=== PATIENT | female | born 1960 | race Caucasian/White ===

== ENCOUNTER 2018-09-08 21:48 | Emergency (ER) | payer BC, OTHER ==
[~2018-09-08] VITALS: Ht 162.6 cm; Wt 75.3 kg
[2018-09-08 23:39] LABS: URINE HCG NEGATIVE (NEG)
[2018-09-08 23:45] LABS: CLARITY,URINE SLIGHTLY CLOUDY (Clear); COLOR,URINE YELLOW (Yellow); GLUCOSE, URINE NEGATIVE (Neg); KETONES,URINE NEGATIVE (Neg); LEUKOCYTE ESTERASE ,URINE NEGATIVE (Neg); NITRITES, URINE NEGATIVE (Neg); OCCULT BLOOD,URINE NEGATIVE (Neg); PH,URINE 5.5 (4.8-8.0); PROTEIN,URINE NEGATIVE (Neg); UROBILINOGEN,URINE 0.2 E.U/dL (0.2-1.0)
[2018-09-09 00:06] LABS: UA COLLECTION TYPE VOIDED
[2018-09-09 00:30] LABS: BACTERIA,URINE FEW /HPF (Neg); MUCUS STRANDS MODERATE /LPF (Neg); RBC,URINE 0-2 /HPF (0-2); SQUAMOUS EPITHELIAL CELL,UR MODERATE /LPF (FEW)
[2018-09-09] MEDS ORDERED: cephalexin 250mg capsule PO ONE (01:50)
[2018-09-09] MEDS ORDERED: HYDROcodone/acetaminophen 5mg/325mg tablet PO ONE (01:50)
[2018-09-09] MEDS ORDERED: DICL100G15 TOP (02:42)
[2018-09-09] MEDS ORDERED: CEPH500C5 PO (02:42)
[2018-09-09 02:47] VITALS: BP 148/89
== END 2018-09-09 02:56 | disposition home or self-care (01) ==
LOC: ER 21:49
DX: R10.9 Unspecified abdominal pain (principal); M54.5 Low back pain; Z88.2 Allergy status to sulfonamides; Z79.899 Other long term (current) drug therapy
CPT/HCPCS: 74176; 81001; 81003; 81025; 87088; 99284

== ENCOUNTER 2020-11-27 02:22 | Emergency (ER) | payer BC, OTHER ==
[~2020-11-27] VITALS: Ht 162.6 cm; Wt 73.6 kg
[~2020-11-27 02:22] MED LIST: DICL100G15 TOP
[2020-11-27 02:39] VITALS: BP 130/78
[2020-11-27] MEDS ORDERED: ketorolac trometh. 30mg/ml inj. IV ONE ×2 (02:55→03:25)
[2020-11-27] MEDS ORDERED: acetaminophen 325mg tablet PO ONE (02:55)
[2020-11-27] MEDS ORDERED: normal saline 1000ml 1,000 ML IV ONE (03:00)
[2020-11-27] MEDS ORDERED: ondansetron/PF 4mg/2ml inj IV ONE (03:00)
[2020-11-27 03:37] LABS: CLARITY,URINE CLEAR (Clear); COLOR,URINE YELLOW (Yellow); GLUCOSE, URINE NEGATIVE (Neg); KETONES,URINE NEGATIVE (Neg); LEUKOCYTE ESTERASE ,URINE SMALL (Neg); NITRITES, URINE NEGATIVE (Neg); OCCULT BLOOD,URINE NEGATIVE (Neg); PROTEIN,URINE NEGATIVE (Neg); UROBILINOGEN,URINE 0.2 E.U/dL (0.2-1.0)
[2020-11-27 03:42] LABS: BASOPHILS % (AUTO) 0.3 % (0-1); EOSINOPHILS % (AUTO) 0.6 % (0-6); HEMATOCRIT 36.7 % (35.0-45.0); HEMOGLOBIN 12.5 g/dl (12.0-16.0); LYMPHOCYTES # (AUTO) 1.7 X10'3 (1.1-4.8); LYMPHOCYTES % (AUTO) 33.4 % (21-51); MEAN CORPUSCULAR HEMOGLOBIN 31.9 PG (27.0-31.0); MEAN CORPUSCULAR HGB CONC 34.1 g/dL (33.0-36.5); MEAN CORPUSCULAR VOLUME 93.3 FL (78-98); MEAN PLATELET VOLUME 7.5 FL (7.4-10.4); MONOCYTES # (AUTO) 0.4 X10'3 (0-0.9); MONOCYTES % (AUTO) 7.8 % (2-12); NEUTROPHILS % (AUTO) 57.9 % (42-75); PLATELET COUNT 161 X10'3 (140-440); RED BLOOD COUNT 3.94 X10'6 (4.20-5.60); RED CELL DISTRIBUTION WIDTH 13.5 % (11.5-14.5); WHITE BLOOD COUNT 5.1 X10'3 (4.5-11.0)
[2020-11-27 03:43] LABS: UA COLLECTION TYPE CLN CATCH MIDSTREAM
[2020-11-27 03:44] LABS: BACTERIA,URINE NONE SEEN /HPF (Neg); RBC,URINE NONE SEEN /HPF (0-2); SQUAMOUS EPITHELIAL CELL,UR FEW /LPF (FEW); WBC,URINE 0-4 /HPF (0-4)
[2020-11-27 04:01] LABS: ALANINE AMINOTRANSFERASE 35 U/L (12-78); ALBUMIN 3.7 G/DL (3.4-5.0); ALBUMIN/GLOBULIN RATIO 1.1 (1.1-1.5); ALKALINE PHOSPHATASE 94 IU/L (46-116); ANION GAP 10 (8-16); ASPARTATE AMINO TRANSFERASE 27 U/L (10-37); BILIRUBIN,TOTAL 0.4 MG/DL (0.1-1.0); BLOOD UREA NITROGEN 8 MG/DL (7-18); BUN/CREATININE RATIO 9.5 (6.6-38.0); CHLORIDE 102 MMOL/L (99-107); CREATININE 0.84 MG/DL (0.40-0.90); GLUCOSE 111 MG/DL (70-104); LIPASE 58 U/L (73-393); SODIUM 137 MMOL/L (135-145); TOTAL CARBON DIOXIDE 25.4 MMOL/L (24-32); TOTAL PROTEIN 7.1 G/DL (6.4-8.2); eGFR 70 ML/MIN
[2020-11-27 04:06] LABS: POTASSIUM 2.8 MMOL/L (3.5-5.1)
[2020-11-27] MEDS ORDERED: potassium Cl 20 mEq SR tablet PO STA (05:15)
[2020-11-27] MEDS ORDERED: POTA20TA19 PO (05:39)
[2020-11-27] MEDS ORDERED: ONDA4TAB6 PO (05:39)
== END 2020-11-27 05:52 | disposition home or self-care (01) ==
LOC: ER 02:23
DX: E87.6 Hypokalemia (principal); M54.89 Other dorsalgia; R10.84 Generalized abdominal pain; R11.0 Nausea; Z86.69 Personal history of other diseases of the nervous system and sense organs; Z87.442 Personal history of urinary calculi; Z88.2 Allergy status to sulfonamides; Z79.899 Other long term (current) drug therapy
CPT/HCPCS: 36415; 74176; 80053; 81001; 83690; 85025; 87088; 96361; 96374; 99284; J1885; J7030

== ENCOUNTER 2023-07-22 11:22 | Emergency (ER) | payer BC ==
[~2023-07-22] VITALS: Ht 162.6 cm; Wt 70.5 kg
[~2023-07-22 11:22] MED LIST changes: +ONDA4TAB6 PO
[2023-07-22] MEDS: dexamethasone sod phosphate 10mg/ml inj PO STA (15:11)
[2023-07-22] MEDS: ketorolac trometh inj. 60 MG/2 ML VIAL IM ONE (15:43)
[2023-07-22] MEDS: ipratropium/albuterol 3ml nebule NEB STA (16:54)
[2023-07-22 16:59] VITALS: PULSE 77; PULSE 79; RESP 0; RESP 18
[2023-07-22 17:02] LABS: BASOPHILS # (AUTO) 0.1 X10'3 (0-0.2); BASOPHILS % (AUTO) 0.9 % (0-1); EOSINOPHILS # (AUTO) 0.2 X10'3 (0-0.9); EOSINOPHILS % (AUTO) 3.8 % (0-6); HEMOGLOBIN 11.6 g/dl (12.0-16.0); LYMPHOCYTES # (AUTO) 1.7 X10'3 (1.1-4.8); LYMPHOCYTES % (AUTO) 27.4 % (21-51); MEAN CORPUSCULAR HEMOGLOBIN 31.1 PG (27.0-31.0); MEAN CORPUSCULAR HGB CONC 34.1 g/dL (33.0-36.5); MEAN CORPUSCULAR VOLUME 91.4 FL (78-98); MEAN PLATELET VOLUME 6.8 FL (7.4-10.4); MONOCYTES # (AUTO) 0.4 X10'3 (0-0.9); MONOCYTES % (AUTO) 6.9 % (2-12); NEUTROPHILS # (AUTO) 3.7 X10'3 (1.8-7.7); PLATELET COUNT 283 X10'3 (140-440); RED BLOOD COUNT 3.72 X10'6 (4.20-5.60); RED CELL DISTRIBUTION WIDTH 13.2 % (11.5-14.5); WHITE BLOOD COUNT 6.1 X10'3 (4.5-11.0)
[2023-07-22 17:19] LABS: APTT 26 SECONDS (22-32)
[2023-07-22 17:32] LABS: INR 0.9 INR
[2023-07-22 17:34] LABS: ALANINE AMINOTRANSFERASE 131 U/L (12-78); ALBUMIN 3.2 G/DL (3.4-5.0); ALBUMIN/GLOBULIN RATIO 0.8 (1.1-1.5); ALKALINE PHOSPHATASE 106 IU/L (46-116); ANION GAP 3 (8-16); ASPARTATE AMINO TRANSFERASE 87 U/L (10-37); BILIRUBIN,TOTAL 0.3 MG/DL (0.1-1.0); BLOOD UREA NITROGEN 8 MG/DL (7-18); BUN/CREATININE RATIO 12.7 (10.0-20.0); CALCIUM 7.8 MG/DL (8.5-10.1); CHLORIDE 101 MMOL/L (99-107); CREATININE 0.63 MG/DL (0.40-0.90); GLUCOSE 114 MG/DL (70-104); POTASSIUM 3.3 MMOL/L (3.5-5.1); PRO BRAIN NATRIURETIC PEPTIDE 146 PG/ML (0-125); SODIUM 138 MMOL/L (135-145); TOTAL CARBON DIOXIDE 33.6 MMOL/L (24-32); TOTAL PROTEIN 7.1 G/DL (6.4-8.2); eCRCL 82 ML/MIN; eGFR > 90 ML/MIN
[2023-07-22] MEDS ORDERED: AZIT500T PO (17:52)
[2023-07-22] MEDS ORDERED: ALBU8HFA INH (17:52)
[2023-07-22] MEDS ORDERED: PRED20TA PO (17:52)
[2023-07-22] MEDS: CefTRIAXone 1000mg IM Kit (w/lidocaine diluent) IM ONE (18:28)
[2023-07-22 18:35] VITALS: BP 158/88; PULSE 89; RESP 16; TEMP 98; O2SAT 92
== END 2023-07-22 18:38 | disposition home or self-care (01) ==
LOC: ER 11:23
DX: J18.9 Pneumonia, unspecified organism (principal); Z88.2 Allergy status to sulfonamides; Z87.442 Personal history of urinary calculi; Z79.899 Other long term (current) drug therapy
CPT/HCPCS: 36415; 71045; 80053; 83605; 83880; 84145; 84484; 85025; 85610; 85730; 87040; 94640; 96372; 99284; J0696; J1100; J1885; 94760